=== PATIENT | female | born 1990 | race African-American/Black ===

== ENCOUNTER 2023-08-07 07:47 | Emergency (ER) | payer OTHER, SELFPAY ==
--- NOTE | ~2023-08-07 | US_ITS ---
EXAMINATION: US OB <=14 wk fetus w TV DATE: 08/07/2023 10:45 INDICATION: Vaginal bleeding during first trimester TECHNIQUE: Real-time pelvic transabdominal and transvaginal ultrasound was performed. COMPARISON: None. FINDINGS: The uterus measures 10.0 x 5.5 x 4.9 cm. No intrauterine gestational sac is identified. The re is heterogeneous endometrial thickening measuring up to 2.4 cm. The right ovary measures 3.0 x 3.2 x 3.8 cm and contains a 3.0 cm hemorrhagic cyst. The left ovary me asures 3.2 x 1.6 x 1.8 cm. There is normal vascular flow in the ovaries. There is no free fluid in th e pelvis. IMPRESSION: 1. of unknown location. Although no intrauterine gestational sac is seen, this may be due t o early gestation. If the patient is clinically stable, recommend followup with serial beta-hCG and u ltrasound. Reviewed, dictated and finalized at location L. NEERING DIRECTOR IMPRESSION: 1. of unknown location. Although no intrauterine gestational sac is s een, this may be due to early gestation. If the patient is clinically stable, r ecommend followup with serial beta-hCG and ultrasound.
[2023-08-07 07:50] VITALS: BP 172/102; PULSE 86; RESP 18; TEMP 36.7; O2SAT 100
[2023-08-07 08:24] LABS: Basophils Absolute Auto 0.1 K/mm3 (0.0-0.1); Basophils Percent Auto 0.5 % (0.2-1.2); Eosinophils Absolute Auto 0.2 K/mm3 (0-0.3); Eosinophils Percent Auto 2.4 % (0-4.4); Hematocrit 35.7 % (37.0-47.0); Hemoglobin 11.4 g/dL (12.0-15.0); Immature Granulocyte Absolute 0.04 K/mm3 (0.00-0.031); Immature Granulocyte Percent A 0.4 % (0-0.5); Lymphocytes Absolute Auto 2.21 K/mm3 (0.9-3.2); Lymphocytes Percent Auto 23.6 % (18.3-44.2); Mean Corpuscular HGB Conc 31.9 g/dl (32-36); Mean Corpuscular Hemoglobin 27.7 pg (26-34); Mean Corpuscular Volume 86.7 fl (80-100); Mean Platelet Volume 8.8 fl (7.4-10.4); Monocytes Absolute Auto 1.1 K/mm3 (0.1-0.6); Monocytes Percent Auto 12.1 % (2.6-8.5); Neutrophils Absolute Auto 5.7 K/mm3 (1.3-6.7); Platelet Count Result 425 k/mm3 (150-375); Red Blood Count 4.12 M/mm3 (4.2-5.4); Red Cell Distribution Width 14.6 % (11.5-14.5); White Blood Count 9.4 K/mm3 (4.5-10.0)
[2023-08-07 08:32] LABS: Alanine Aminotransferase 27 U/L (6-35); Albumin Level 4.4 g/dL (3.5-5.1); Alkaline Phosphatase 62 U/L (38-126); Anion Gap 6 mmol/L (8-16); Aspartate Amino Transferase 27 U/L (14-36); Bilirubin,Total 0.4 mg/dL (0.2-1.3); Blood Urea Nitrogen 10 mg/dL (7-17); Carbon Dioxide 24 mmol/L (22-30); Chloride 107 mmol/L (98-107); Estimated CRCL calculation 138 ml/min; Estimated Glomerular Filt Rate > 60; Glucose 102 mg/dL (65-110); Potassium 3.6 mmol/L (3.4-5.0); Sodium 137 mmol/L (137-145)
[2023-08-07 09:00] LABS: INR 0.9; Partial Thromboplastin Time 36.8 SECONDS (22.3-36.8)
[2023-08-07] MEDS: ACETAMINOPHEN 500 MG TABLET 1000 MG PO (09:28)
--- NOTE | 2023-08-07 09:35 | ED.GENADULT ---
HPI - General Adult General Chief complaint: Vaginal Bleeding Stated complaint: Vaginal Bleeding, 7wk Time Seen by Provider: 08/07/23 08:26 History of Present Illness HPI narrative: 33-year-old female presents emergency department for evaluation of vaginal bleeding with early . Patient states she suspects she is approximately 7 weeks , patient reports she did have some mild spotting yesterday and then today she began passing more significant clots. Related Data Allergies Allergy/AdvReac Type Severity Reaction Status Date / Time No Known Allergies Allergy Verified 08/07/23 08:06 Review of Systems Review of Systems: All systems reviewed & are unremarkable except as noted in HPI and below Exam Narrative: APPEARANCE: Well appearing, no pain, no distress, well-nourished. HEAD: normocephalic, atraumatic. EYES: PERRLA/EOMI, conjunctivae clear. NOSE: Normal no drainage NECK: Supple. No adenopathy, no masses. RESPIRATORY: Airway patent, respirations nonlabored. Clear to auscultation bilaterally, no rales, rhonchi, wheezing. CARDIOVASCULAR: Regular rate and rhythm without murmurs rubs or gallops. ABDOMINAL: Soft, nontender, nondistended, normal bowel sounds MUSCULOSKELETAL: Moves all extremities. Strength/ROM intact, No edema, No calf tenderness. NEURO: Alert. Cranial nerves II through XII intact. Grossly intact SKIN: Warm, dry. Normal Color Course Course Emergency Course: Patient was encouraged of close follow-up with her OB Gyne Vital Signs Vital signs: Vital Signs Temperature 98.1 F 08/07/23 07:50 Pulse Rate 86 08/07/23 07:50 Respiratory Rate 18 08/07/23 07:50 Blood Pressure 172/102 H 08/07/23 07:50 Pulse Oximetry 100 08/07/23 07:50 Oxygen Delivery Room Air 08/07/23 07:50 Temperature 97.8 F 08/07/23 11:28 Pulse Rate 80 08/07/23 11:28 Respiratory Rate 16 08/07/23 11:28 Blood Pressure 136/84 08/07/23 11:28 Pulse Oximetry 98 08/07/23 11:28 Oxygen Delivery Room Air 08/07/23 07:50 Medical Decision Making [facility] Narrative Medical decision making narrative: 33-year-old female presents to the emergency department for evaluation of vaginal bleeding. Patient states when she had her ultrasound has outpatient and they did see a gestational sac with in the uterus but no fetus. Ultrasound was ordered today and ultrasound showed no gestational sac. Patient is A positive and does not require RhoGAM. Patient's beta HCG was 5733.8. Patient is afebrile with no leukocytosis and a stable hemoglobin. Patient was updated on results of her ultrasound and patient does have follow-up scheduled with OB Gyne. Differential Diagnosis Differential Diagnosis: Ectopic , threatened miscarriage, vaginal bleeding Vital Signs Vital Signs: Vital Signs Temperature 98.1 F 08/07/23 07:50 Pulse Rate 86 08/07/23 07:50 Respiratory Rate 18 08/07/23 07:50 Blood Pressure 172/102 H 08/07/23 07:50 Pulse Oximetry 100 08/07/23 07:50 Oxygen Delivery Room Air 08/07/23 07:50 Temperature 97.8 F 08/07/23 11:28 Pulse Rate 80 08/07/23 11:28 Respiratory Rate 16 08/07/23 11:28 Blood Pressure 136/84 08/07/23 11:28 Pulse Oximetry 98 08/07/23 11:28 Oxygen Delivery Room Air 08/07/23 07:50 Lab Data Lab results reviewed: Yes I reviewed the patient's lab results. 08/07/23 08:13 08/07/23 08:13 Labs: Lab Results 08/07/23 Range/Units 08:13 WBC 9.4 (4.5-10.0) K/mm3 RBC 4.12 L (4.2-5.4) M/mm3 Hgb 11.4 L (12.0-15.0) g/dL Hct 35.7 L (37.0-47.0) % MCV 86.7 (80-100) fl MCH 27.7 (26-34) pg MCHC 31.9 L (32-36) g/dl RDW 14.6 H (11.5-14.5) % Plt Count 425 H (150-375) k/mm3 MPV 8.8 (7.4-10.4) fl Immature Gran % (Auto) 0.4 (0-0.5) % Neut % (Auto) 61.0 (45.5-73.1) % Lymph % (Auto) 23.6 (18.3-44.2) % [place] % (Auto) 12.1 H (2.6-8.5) % Eos % (Auto) 2.4 (0-4.4) % Baso % (A
[2023-08-07 10:22] VITALS: BP 135/82; PULSE 72; RESP 17; O2SAT 99
[2023-08-07 11:28] VITALS: BP 136/84; PULSE 80; RESP 16; TEMP 36.6; O2SAT 98
== END 2023-08-07 11:30 | disposition home or self-care (01) ==
PROVIDERS: Emergency Provider Emergency Medicine
DX: O20.0 Threatened abortion (principal); Z3A.01 Less than 8 weeks gestation of pregnancy
CPT/HCPCS: 36415; 76801; 76817; 80053; 84702; 85025; 85461; 85610; 85730; 86850; 86900; 86901; 99284; A9270

== ENCOUNTER 2024-07-25 19:50 | Observation (INO) | payer OTHER, SELFPAY ==
[2024-07-25] VITALS (14 sets, daily range): BP systolic 123–157; BP diastolic 70–93; PULSE 61–100; TEMP 36.8; O2SAT 97–100
--- OUTSIDE RECORDS SUMMARY | 2024-07-25 20:00 | XMS_ITS | Clinical Summary ---
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 Expectant management: [] Mode of delivery: [] For C/S bottle of CHG 4% and hand out provided @ 36wks Teaching: [] 1st visit [] 28-30 week [] 36 week Bilateral low back pain without sciatica 023 Overview (02/06/2024): Noticed more the last few months. Pain in the middle of her lower back bilaterally. Feels like it shoots across her back from one side to the other, does not shoot down legs. She knows that her increase in weight could be contributing. No tenderness at SI joints. Has not tried anything for it yet. Gave Care of the Back Book today and recommended gently stretching exercises. Okay to use heat and Tylenol, ibuprofen as long as limited use and not . Consider PT if not improving over the next month. Elevated BP without diagnosis of hypertension Overview (02/06/2024): 06/27/2023: Blood pressure is still in the 130s/70s even on recheck today. Denies any headaches, vision changes, chest pain, shortness for breath, palpitations, edema. Discussed that we would recommend starting a blood pressure medication as she has had more than 2 blood pressures at separate appointments which have been elevated in clinic. She states she has had difficulty picking up her blood pressure machine at [facility], so sent a new blood pressure machine in today. Discussed that home blood pressures tend to be the most accurate as some people can be anxious when in the clinic setting, and are more relaxed at home. She discusses that she does feel less stressed and more calm after finishing school and moving. However, she has not been able to work on diet and weight loss as much she has wanted. She would like the opportunity to work on some of these things 1st, then return and if blood pressures are still consistently in the 130s/80s would be willing to start medication. They are currently trying to conceive so would need to start medication that is safe for . Return in 4 weeks for blood pressure check. 05/29/2023 : Blood pressure is elevated today in clinic but she recognizes she is anxious for this visit with the PAP. She was not able to pick up worker the BP cuff previously but is now done with school so will plan to pick it up this week. They are still in the process of moving to [facility] the middle of June but states she will likely continue care at [facility]. She will bring repeat blood pressures to appointment in about 3 weeks to evaluate. Will also work on diet and weight loss. If consistently above 130s/80s will start BP medication. Blood pressure is elevated today in clinic and remained slightly elevated even on recheck. Discussed with patient that she is had multiple stressors in the last 2 months and she recognizes that these can raise her blood pressure. Discussed that NSAIDs like ibuprofen can also raise blood pressure. Blood pressure monitor for home prescribed to [employer], and instructions given to take blood pressure at the same time of day for the next few weeks. Patient will bring these into next appointment and if consistently 130/80 or higher we will discuss starting blood pressure medication. Morbid obesity due to excess calories 10/13/2022 Overview (02/06/2024): Wt Readings from Last 6 Encounters: 06/26/23 116.8 kg (257 lb 6.4 oz) 05/29/23 117.2 kg (258 lb 6.4 oz) 05/01/23 116 kg (255 lb 12.8 oz) 01/18/23 109.8 kg (242 lb) 10/13/22 111.1 kg (245 lb) 09/18/22 109.8 kg (242 lb) Given education on diet and exercise. Discussed including good proteins and fats with meals to help keep her full longer. Reviewed basics of Mediterranean diet. Moderate episode of recurrent major depressive d isorder 08/21/2022 Overview (02/06/2024): patient does not feel sad. However she does have feelings of lack of interest. She reports feeling tired and fatigued, reports psychomotor agitation, has sleep disturbances and appetite disturbances. She denies any suicidal, homicidal ideations. Given lack of interest, anhedonia, diagnosis of depression is apparent. Treatment with SSRI will help with anxiety and depression management. Marijuana abuse 05/30/2022 Lumbar degenerative disc disease 03/14/2021 Generalized anxiety disorder 02/22/2021 Overview (02/06/2024): Update. 01/18/2023 : She reports that after using Lexapro 10 mg, her anxiety has become worse. She does not want to use this medication. We will switch her over to buspirone and see how she responds Update. August 21. Patient reports 10% improvement after starting 5 mg of Lexapro. No side effects reported. Keeping this in mind, will advise her to increase the dose to 10 mg daily. Additionally, referral to psychiatry has been placed. Has been having difficulty controlling her anger. Anxiety screening as below. Uses marijuana to self medicate. Recently got a pet dog. That seems to help as a emotional support animal. Given the positive screening below, will initiate treatment with Lexapro and see how she responds. 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 Wanted tested herself but never has had breakout. Discussed positive result. Will not treat at this point. Comments Yes Immunizations Name Administration Dates Next Due DTaP 11/04/1996,10/01/1992 Hep B, Adolescent or Pediatric 03/25/1997,1996,04/02/1995 Hib (PRP-T) 07/23/1992,1991,1991 ,1991 MMR 11/04/1996,07/23/1992 Meningococcal MCV4P (Menactra) 01/11/2005 OPV 11/04/1996, 3,1991,1991,0 1991 TD Preservative Free 01/11/2005 Tdap 04/25/2022 Social History Tobacco Use Types Packs/Day Years Used Date Smoking Tobacco: Never Assessed Personal Safety Answer Date Recorded Have you ever been in or are you currently in a harmful physical or emotional relationship or is someone making you feel afraid or unsafe? Denies 01/08/2024 Comments Yes Sex and Gender Information Value Date Recorded Sex Assigned at Not on file Legal Sex Female 3:51 PM CDT Gender Identity Not on file Sexual Orientation Not on file Obstetrics History Para Term AB IAB SAB Ectopic Multiple Livin g Live Births 3 2 1 1 Date Outcome GA Total Labor Labor/2nd/3rd Weight Sex Type Anes PTL [place] A1 A5 Name Clin 11/2016 IAB 08/2023 SAB Current Summary Episode Dates Number of Fetuses Estimated Date of Delivery 02/06/2024 - Present (07/25/2024) Unknown Dating Summary Based On BABAK GA Diff Last Menstrual Period on 12/22/2023 09/27/2024 Last Filed Vital Signs Vital Sign Reading Time Taken Comments Blood Pressure 150/110 01/08/2024 1:30 PM CDT Pulse 76 01/08/2024 1:30 PM CDT Temperature 37.3 C (99.1 F) 01/08/2024 12:19 PM CDT Respiratory Rate 20 01/08/2024 1:30 PM CDT Oxygen Saturation 99% 01/08/2024 1:30 PM CDT Inhaled Oxygen Concentration - - Weight 111.8 kg (246 lb 7.6 oz) 024 12:19 PM CDT Height 172.7 cm (5' 8 ) 12/10/2023 12:5 9 PM CDT Body Mass Index 37.48 12/10/2023 12:59 PM CDT Plan of Treatment Health Maintenance Due Date Last Done Comments Cervical Cancer Screening 1991 Depression Screening 1991 Hepatitis C Screening 1991 Varicella Vaccines (1 of 2 - 13+ 2-dose series) 2004 Regular Well Visit/Exam 18-64 2009 Influenza Vaccine (#1) 2024 DTaP/Tdap/Td Vaccine (4 - Td or Tdap) 04/25/2032 04/25/2022, 01/11/2005, 11/04/1996, Additional history exists Hepatitis B Screening Completed 03/25/1997 , 11/04/1996, 04/02/1995 HPV Vaccines Aged Out No longer eligi ble based on patient's age to complete this topic Pneumococcal vaccine <65 Aged Out No longer eligible based on patient's age to complete [place] [id number] [facility] [address] [facility] Care Teams College Recruiter Relationship Specialty Start Date End Date Unknown, Notinfile PCP - General 11/08/23
--- OUTSIDE RECORDS SUMMARY | 2024-07-25 20:00 | XMS_ITS | Referral Summary ---
Author Organization [facility] Address [address] [place] [address] Care Team Providers Care Muffler Mechanic Name Role Phone Unavailable Primary Care Provider Unavailabl e Source Comments [facility],non-owned Affiliates and Associated Physician Practices is amultiple site organization consisting of ambulatory clinics and hospital sitesin [place], [place], [place] and [place]. This disclosure is being madepursuant to the Care Everywhere program and may not contain all information available regarding this patient. Last updated 18.[facility] [employer] Encounters Date Type Department Care Team Description 04/25/2024 11:24 PM TICKET DISPATCHER - 04/26/2024 5:01 AM TICKET DISPATCHER Emergency [facility] EMERGENCY DEPARTMENT [address] [place] [id number] Fall, initial encounter Discharge Disposition: Left Against Medical Advice/Discontinued Care 04/25/2024 Travel from Last 3 Months Allergies No known active allergies Social History Tobacco Use Types Packs/Day Years Used Date Smoking Tobacco: Never Assessed Sex and Gender Information Value Date Recorded Sex Assigned at Not on file Gender Identity Not on file Sexual Orientation Not on file Last Filed Vital Signs Vital Sign Reading Time Taken Comments Blood Pressure 132/101 04/25/2024 11:26 PM TICKET DISPATCHER Pulse 106 04/25/2024 11:26 PM TICKET DISPATCHER Temperature 36.7 C (98 F) 04/25/2024 11:26 PM TICKET DISPATCHER Respiratory Rate 22 04/25/2024 11:26 PM TICKET DISPATCHER Oxygen Saturation 97% 04/25/2024 11:26 PM TICKET DISPATCHER Inhaled Oxygen Concentration - - Weight 115.7 kg (255 lb) 04/25/2024 11:26 PM TICKET DISPATCHER Height 172.7 cm (5' 8 ) 04/25/2024 11:26 PM TICKET DISPATCHER Body Mass Index 38.77 04/25/2024 11:26 PM TICKET DISPATCHER Plan of Treatment Not on file Procedures Procedure Name Priority Date/Time Associated Diagnosis Comments CT ORBITS WO CONTRAST STAT 04/26/2024 1:54 AM TICKET DISPATCHER Fall, initial encounter CT HEAD WO CONTRAST STAT 04/26/2024 1 :54 AM TICKET DISPATCHER Fall, initial encounter COMPREHENSIVE METABOLIC PANEL STAT 04/26/2024 12:13 AM TICKET DISPATCHER CBC W AUTO DIFFERENTIAL STAT 04/26/2024 12:13 AM TICKET DISPATCHER HCG URINE QUALITATIVE STAT 04/26/2024 12:13 AM TICKET DISPATCHER from Last 3 Months Results * CT Orbits Wo Contrast (04/26/2024 1:54 AM TICKET DISPATCHER) Anatomical Region Laterality Modality Head Computed Tomogra phy 04/26/2024 2:06 AM TICKET DISPATCHER Impressions 04/26/2024 7:24 AM TICKET DISPATCHER IMPRESSION: 1.Proptotic globes bilaterally. No orbital fracture or retrobulbar hematoma is identified. > Dictated by Paulino Daniels DO (resident services supervisor). IErica MD have personally reviewed and interpreted this examination/study. > Interpreting Provider: Erica George MD on 04/26/2024 7:24 AM Narrative 04/26/2024 7:24 AM TICKET DISPATCHER EXAMINATION: CT ORBITS WO CONTRAST DATE/TIME OF EXAM: 04/26/2024 1:55 AM, LOCATION [facility] HISTORY: W19.XXXA: Fall, initial encounter ?orbit fracture, vision change (20/50 in left eye with laceration, fall) COMPARISON: No prior study is available for comparison. FINDINGS: Mildly proptotic globes bilaterally. No orbital fracture is identified. No retrobulbar hematoma. No radiodense foreign bodies are identified in the orbits. There is mild paranasal sinus disease. There is a mucous retention cyst in the left maxillary sinus. The nasal septum is mildly limited to the right. No acute fracture of the visualized facial bones. The middle ear cavities and mastoid air cells are clear. No soft tissue abnormality is identified. Procedure Note Erica George MD - 04/26/2024 EXAMINATION: CT ORBITS WO CONTRAST DATE/TIME OF EXAM: 04/26/2024 1:55 AM, LOCATION [facility] HISTORY: W19.XXXA: Fall, initial encounter ?orbit fracture, visionchange (20/50 in left eye with laceration, fall) COMPARISON: No prior study is available for comparison. FINDINGS: Mildly proptotic globes bilaterally. No orbital fracture is identified.No retrobulbar hematoma. No radiodense foreign bodies are identified in the orbits. There is mild paranasal sinus disease. There is a mucousretention cyst in the left maxillary sinus. The nasal septum is mildly limited tothe right. No acute fracture of the visualized facial bones. The middle ear cavities and mastoid air cells are clear. No soft tissue abnormality is identified. IMPRESSION: 1.Proptotic globes bilaterally. No orbital fracture or retrobulbarhematoma is identified. > Dictated by Paulino Daniels DO (resident services supervisor). Erica Caro MD have personally reviewed and interpretedthis examination/study. > Interpreting Provider: Erica George MD on 04/26/2024 7:24 AM Shakira Sawyer MD CT ORDERABLES * CT Head Wo Contrast (04/26/2024 1:54 AM TICKET DISPATCHER) Anatomical Region Laterality Modality Head Computed Tomogra phy 04/26/2024 1:57 AM TICKET DISPATCHER Impressions 04/26/2024 7:22 AM TICKET DISPATCHER IMPRESSION: 1.No acute intracranial hemorrhage, midline shift, or significant mass effect. > Dictated by Paulino Daniels DO (System Engineer), 04/26/2024 2:05 AM. Erica Caro MD have personally reviewed and interpreted this examination/study. > Interpreting Provider: Erica George MD on 04/26/2024 7:22 AM Narrative 04/26/2024 7:22 AM TICKET DISPATCHER PROCEDURE: CT HEAD WO CONTRAST, DATE/TIME OF EXAM: 04/26/2024 1:55 AM, LOCATION [facility] INDICATION: W19.XXXA: Fall, initial encounter EXAMINATION: Computed tomography (CT) of the head without contrast ADDITIONAL CLINICAL INFORMATION: Ordering Provider Reason For Exam: ?ICH TECHNIQUE: CT of the head was performed without contrast according to standard protocol. CT dose reduction technique was used, including Automated Exposure Control. COMPARISON: No prior study is available for comparison at the time of this dictation. FINDINGS: No acute intra- or extra-axial fluid collections are identified. Subjective minimal prominence of the ventricles. The ventricles are otherwise normal in shape and morphology. The basilar cisterns are patent. No mass effect or midline shift is seen. The joseph-white matter differentiation is normal. No acute calvarial fracture is identified. The orbits appear normal. The paranasal sinuses are clear. The mastoid air cells are clear. No soft tissue abnormality is identified. Brain injury guidelines: Skull fracture: No Subdural hematoma: No subdural hematoma. Epidural hematoma: No epidural hematoma. Intraparenchymal hemorrhage: No intraparenchymal hemorrhage. Subarachnoid hemorrhage: No subarachnoid hemorrhage. Intraventricular hemorrhage: No. Midline shift: No. Procedure Note Erica George MD - 04/26/2024 PROCEDURE: CT HEAD WO CONTRAST, DATE/TIME OF EXAM: 04/26/2024 1:55 AM, LOCATION [facility] INDICATION: W19.XXXA: Fall, initial encounter EXAMINATION: Computed tomography (CT) of the head without contrast ADDITIONAL CLINICAL INFORMATION: Ordering Provider Reason For Exam: ?ICH TECHNIQUE: CT of the head was performed without contrast according to standard protocol. CT dose reduction technique was used, including Automated Exposure Control. COMPARISON: No prior study is available for comparison at the time ofthis dictation. FINDINGS: No acute intra- or extra-axial fluid collections are identified.Subjective minimal prominence of the ventricles. The ventricles are otherwisenormal in shape and morphology. The basilar cisterns are patent. No mass effector midline shift is seen. The joseph-white matter differentiation is normal.No acute calvarial fracture is identified. The orbits appear normal. The paranasal sinuses are clear. The mastoid air cells are clear. No soft tissue abnormality is identified. Brain injury guidelines: Skull fracture: No Subdural hematoma: No subdural hematoma. Epidural hematoma: No epidural hematoma. Intraparenchymal hemorrhage: No intraparenchymal hemorrhage. Subarachnoid hemorrhage: No subarachnoid hemorrhage. Intraventricular hemorrhage: No. Midline shift: No. IMPRESSION: 1.No acute intracranial hemorrhage, midline shift, or significant mass effect. > Dictated by Paulino Daniels DO (System Engineer), 04/26/2024 2:05AM. I, Erica George MD have personally reviewed and interpretedthis examination/study. > Interpreting Provider: Erica George MD on 04/26/2024 7:22 AM Shakira Sawyer MD CT ORDERABLES * (ABNORMAL) HCG URINE QUALITATIVE (04/26/2024 12:13 AM TICKET DISPATCHER) [facility] Test Urine Positive(A ) Negative 04/26/2024 12:29 AM [facility] Urine URINE / Unknown Collection / Unknown 04/26/2024 12:13 AM TICKET DISPATCHER 04/26/2024 12:19 AM TICKET DISPATCHER Gilbert Tang MD LAB - URINALYSIS ORD ERABLES [facility] [address] [place] [id number] [phone] * (ABNORMAL) CBC W AUTO DIFFERENTIAL (04/26/2024 12:13 AM TICKET DISPATCHER) [facility] WBC 11.8(H) 4.0 - 10.7 x10E9/L 04/26/2024 12:29 AM [facility] RBC Count 3.86(L) 3.90 - 5.20 x10E12/L 04/26/2024 12:29 AM [facility] Hemoglobin 10.8(L) 11.9 - 15.8 g/dL 04/26/2024 12:29 AM [facility] Hematocrit 32.0(L) 34.8 - 46.1 % 04/26/2024 12:29 AM [facility] MCV 82.9 80.0 - 98.0 fL 04/26/2024 12:29 AM [facility] MCH 28.0 26.7 - 33.6 pg 04/26/2024 12:29 AM [facility] MCHC 33.8 31.7 - 36.3 g/dL 04/26/2024 12:29 AM [facility] RDW-CV 13.1 11.3 - 14.8 % 04/26/2024 12:29 AM [facility] Platelet Count 406 150 - 420 x10E9/L 04/26/2024 12:29 AM [facility] MPV 9.0 7.8 - 11.4 fL 04/26/2024 12:29 AM [facility] Neutrophil % 72.1 41.0 - 74.0 % 04/26/2024 12:29 AM [facility] Lymphocyte % 18.0 17.0 - 47.0 % 04/26/2024 12:29 AM [facility] Monocyte % 8.1 3.0 - 11.0 % 04/26/2024 12:29 AM [facility] Eosinophil % 1.1 0.0 - 7.0 % 04/26/2024 12:29 AM [facility] Basophil % 0.3 0.0 - 1.6 % 04/26/2024 12:29 AM [facility] Immature Granulocytes % 0.4 0.0 - 1.0 % 04/26/2024 12:29 AM [facility] Neutrophil Absolute 8.52(H) 1.60 - 7.50 x10E9/L 04/26/2024 12:29 AM [facility] Lymphocyte Absolute 2.12 1.00 - 4.40 x10E9/L 04/26/2024 12:29 AM [facility] Monocyte Absolute 0.95 0.15 - 1.00 x10E9/L 04/26/2024 12:29 AM [facility] Eosinophil Absolute 0.13 0.00 - 0.60 x10E9/L 04/26/2024 12:29 AM [facility] Basophil Absolute 0.03 0.00 - 0.13 x10E9/L 04/26/2024 12:29 AM [facility] Blood BLOOD SPECIMEN / Unknown Venipuncture / Unknown 04/26/2024 12:13 AM [facility] 04/26/2024 12:21 AM TICKET DISPATCHER Gilbert Tang MD LAB - HEMATOLOGY ORD ERABLES [facility] [address] [place] [address], [facility] [phone] * (ABNORMAL) COMPREHENSIVE METABOLIC PANEL (04/26/2024 12:13 AM [facility]) BUN 6(L) 7 - 26 mg/dL 04/26/2024 12:48 AM [facility] Creatinine 0.59 0.56 - 0.96 mg/dL 04/26/2024 12:48 AM [facility] Sodium 138 136 - 145 mmol/L 04/26/2024 12:48 AM [facility] Potassium 3.6 3.5 - 4.5 mmol/L 04/26/2024 12:48 AM [facility] Chloride 107 98 - 107 mmol/L 04/26/2024 12:48 AM [facility] CO2 23 22 - 29 mmol/L 04/26/2024 12:48 AM [facility] Glucose 89 70 - 99 mg/dL 04/26/2024 12:48 AM [facility] Calcium 9.3 8.4 - 10.2 mg/dL 04/26/2024 12:48 AM [facility] Protein Total 7.5 6.0 - 8.3 g/dL 04/26/2024 12:48 AM [facility] Albumin 3.4 3.4 - 5.0 g/dL 04/26/2024 12:48 AM [facility] Bilirubin Total 0.2 0.2 - 1.2 mg/dL 04/26/2024 12:48 AM [facility] Alkaline Phosphatase 61 40 - 150 U/L 04/26/2024 12:48 AM [facility] ALT 21 5 - 55 U/L 04/26/2024 12:48 AM [facility] AST 18 5 - 34 U/L 04/26/2024 12:48 AM [facility] Anion Gap 8 6 - 16 04/26/2024 12:48 AM [facility] BUN/Creatinine Ratio 10 7 - 23 04/26/2024 12:48 AM [facility] Osmolality Calculated 283 275 - 295 mOsm/kg 04/26/2024 12:48 AM [facility] Albumin/Globulin Ratio 0.8(L) 1.1 - 2.3 04/26/2024 12:48 AM [facility] eGFR by CKD-EPI >90 >=90 mL/min/1.7 3 m2 04/26/2024 12:48 AM [facility] Blood BLOOD SPECIMEN / Unknown Venipuncture / Unknown 04/26/2024 12:13 AM TICKET DISPATCHER 04/26/2024 12:21 AM [facility] Gilbert Tang MD LAB - CHEMISTRY ISHAAN DANIELS [facility] [address] [place] [address], [facility] [phone] from Last [address] [place] [address] Fadumo Baxter Personal/Family Self 1990
--- OUTSIDE RECORDS SUMMARY | 2024-07-25 20:00 | XMS_ITS | Patient Health Summary ---
Author Organization [facility] Address [address] [place] [address] Care Team Providers Care Edging Catcher Name Role Phone Unavailable Primary Care Provider Unavailabl e Note from [facility],non-owned Affiliates and Associated Physician Practices is amultiple site organization consisting of ambulatory clinics and hospital sitesin [place], [place], [place] and [place]. This disclosure is being madepursuant to the Care Everywhere program and may not contain all information available regarding this patient. Last updated 18.[facility] Allergies No known active allergies Social History Tobacco Use Types Packs/Day Years Used Date Smoking Tobacco: Never Assessed Sex and Gender Information Value Date Recorded Sex Assigned at Not on file Gender Identity Not on file Sexual Orientation Not on file Last Filed Vital Signs Vital Sign Reading Time Taken Comments Blood Pressure 132/101 04/25/2024 11:26 PM BASIN FINISH OPERATOR TIG WELDER Pulse 106 04/25/2024 11:26 PM BASIN FINISH OPERATOR TIG WELDER Temperature 36.7 C (98 F) 04/25/2024 11:26 PM BASIN FINISH OPERATOR TIG WELDER Respiratory Rate 22 04/25/2024 11:26 PM BASIN FINISH OPERATOR TIG WELDER Oxygen Saturation 97% 04/25/2024 11:26 PM BASIN FINISH OPERATOR TIG WELDER Inhaled Oxygen Concentration - - Weight 115.7 kg (255 lb) 04/25/2024 11:26 PM BASIN FINISH OPERATOR TIG WELDER Height 172.7 cm (5' 8 ) 04/25/2024 11:26 PM BASIN FINISH OPERATOR TIG WELDER Body Mass Index 38.77 04/25/2024 11:26 PM BASIN FINISH OPERATOR TIG WELDER Procedures * CT ORBITS WO CONTRAST(Performed 04/26/2024) Performed for Fall, initial encounter * CT HEAD WO CONTRAST(Performed 04/26/2024) Performed for Fall, initial encounter * COMPREHENSIVE METABOLIC PANEL(Performed 04/26/2024) * CBC W AUTO DIFFERENTIAL(Performed 04/26/2024) * HCG URINE QUALITATIVE(Performed 04/26/2024) Results * CT Orbits Wo Contrast (04/26/2024 1:54 AM BASIN FINISH OPERATOR TIG WELDER) Anatomical Region Laterality Modality Head Computed Tomogra phy 04/26/2024 2:06 AM BASIN FINISH OPERATOR TIG WELDER Impressions 04/26/2024 7:24 AM BASIN FINISH OPERATOR TIG WELDER IMPRESSION: 1.Proptotic globes bilaterally. No orbital fracture or retrobulbar hematoma is identified. > Dictated by Paulino Daniels DO (co founder and president). IErica MD have personally reviewed and interpreted this examination/study. > Interpreting Provider: Erica George MD on 04/26/2024 7:24 AM Narrative 04/26/2024 7:24 AM BASIN FINISH OPERATOR TIG WELDER EXAMINATION: CT ORBITS WO CONTRAST DATE/TIME OF EXAM: 04/26/2024 1:55 AM, LOCATION [facility] HISTORY: W19.XXXA: Fall, initial encounter ?orbit [...] DATE/TIME OF EXAM: 04/26/2024 1:55 AM, LOCATION [facility] HISTORY: W19.XXXA: Fall, initial encounter ?orbit [...] identified. > Dictated by Paulino Daniels DO (co founder and president). Erica Caro MD have personally reviewed and interpretedthis examination/study. > Interpreting Provider: Erica George MD on 04/26/2024 7:24 AM Shakira Sawyer MD CT ORDERABLES * CT Head Wo Contrast (04/26/2024 1:54 AM BASIN FINISH OPERATOR TIG WELDER) Anatomical Region Laterality Modality Head Computed Tomogra phy 04/26/2024 1:57 AM BASIN FINISH OPERATOR TIG WELDER Impressions 04/26/2024 7:22 AM BASIN FINISH OPERATOR TIG WELDER IMPRESSION: 1.No acute intracranial hemorrhage, midline shift, or significant mass effect. > Dictated by Paulino Daniles DO (Environmental Field Office Manager), 04/26/2024 2:05 AM. Erica Caro MD have personally reviewed and interpreted this examination/study. > Interpreting Provider: Erica George MD on 04/26/2024 7:22 AM Narrative 04/26/2024 7:22 AM BASIN FINISH OPERATOR TIG WELDER PROCEDURE: CT HEAD WO CONTRAST, DATE/TIME OF EXAM: 04/26/2024 1:55 AM, LOCATION [facility] INDICATION: W19.XXXA: Fall, initial encounter EXAMINATION: [...] DATE/TIME OF EXAM: 04/26/2024 1:55 AM, LOCATION [facility] INDICATION: W19.XXXA: Fall, initial encounter EXAMINATION: [...] effect. > Dictated by Paulino Daniels DO (Environmental Field Office Manager), 04/26/2024 2:05AM. Erica Caro MD have personally reviewed and interpretedthis examination/study. > Interpreting Provider: Erica George MD on 04/26/2024 7:22 AM Shakira Sawyer MD CT ORDERABLES * (ABNORMAL) HCG URINE QUALITATIVE (04/26/2024 12:13 AM BASIN FINISH OPERATOR TIG WELDER) Test Urine Positive(A ) Negative 04/26/2024 12:29 AM [facility] Urine URINE / Unknown Collection / Unknown 04/26/2024 12:13 AM BASIN FINISH OPERATOR TIG WELDER 04/26/2024 12:19 AM BASIN FINISH OPERATOR TIG WELDER Gilbert Tang MD LAB - URINALYSIS ORD ERABLES [facility] [address] [place] [address], [facility] [phone] * (ABNORMAL) CBC W AUTO DIFFERENTIAL (04/26/2024 12:[address] [facility]) Pathologist [facility] WBC 11.8(H) 4.0 - 10.7 x10E9/L 04/26/2024 12:29 AM [facility] RBC Count 3.86(L) 3.90 - 5.20 x10E12/L 04/26/2024 12:29 AM [facility] Hemoglobin 10.8(L) 11.9 - 15.8 g/dL 04/26/2024 12:29 AM [facility] Hematocrit 32.0(L) 34.8 - 46.1 % 04/26/2024 12:29 AM [facility] MCV 82.9 80.0 - 98.0 fL 04/26/2024 12:29 AM [facility] MCH 28.0 26.7 - 33.6 pg 04/26/2024 12:29 AM [facility] MCHC 33.8 31.7 - 36.3 g/dL 04/26/2024 12:29 AM [facility] RDW-CV 13.1 11.3 - 14.8 % 04/26/2024 12:29 AM [facility] Platelet Count 406 150 - 420 x10E9/L 04/26/2024 12:29 AM [facility] MPV 9.0 7.8 - 11.4 fL 04/26/2024 12:29 AM [facility] Neutrophil % 72.1 41.0 - 74.0 % 04/26/2024 12:29 AM [facility] Lymphocyte % 18.0 17.0 - 47.0 % 04/26/2024 12:29 AM [facility] Monocyte % 8.1 3.0 - 11.0 % 04/26/2024 12:29 AM [facility] Eosinophil % 1.1 0.0 - 7.0 % 04/26/2024 12:29 AM [facility] Basophil % 0.3 0.0 - 1.6 % 04/26/2024 12:29 AM [facility] Immature Granulocytes % 0.4 0.0 - 1.0 % 04/26/2024 12:29 AM [facility] Neutrophil Absolute 8.52(H) 1.60 - 7.50 x10E9/L 04/26/2024 12:29 AM [facility] Lymphocyte Absolute 2.12 1.00 - 4.40 x10E9/L 04/26/2024 12:29 AM [facility] Monocyte Absolute 0.95 0.15 - 1.00 x10E9/L 04/26/2024 12:29 AM [facility] Eosinophil Absolute 0.13 0.00 - 0.60 x10E9/L 04/26/2024 12:29 AM [facility] Basophil Absolute 0.03 0.00 - 0.13 x10E9/L 04/26/2024 12:29 AM [facility] Blood BLOOD SPECIMEN / Unknown Venipuncture / Unknown 04/26/2024 12:[address] [facility] 04/26/2024 12:[address] [facility] Gilbert Tang MD LAB - HEMATOLOGY ORD ERABLES [facility] [address] [place] [phone], [facility] [phone] * (ABNORMAL) COMPREHENSIVE METABOLIC PANEL (04/26/2024 12:[address] [facility]) BUN 6(L) 7 - 26 mg/dL 04/26/2024 12:48 AM [facility] Creatinine 0.59 0.56 - 0.96 mg/dL 04/26/2024 12:48 AM [facility] Sodium 138 136 - 145 mmol/L 04/26/2024 12:48 AM [facility] Potassium 3.6 3.5 - 4.5 mmol/L 04/26/2024 12:48 AM [facility] Chloride 107 98 - 107 mmol/L 04/26/2024 12:48 AM [facility] CO2 23 22 - 29 mmol/L 04/26/2024 12:48 AM [facility] Glucose 89 70 - 99 mg/dL 04/26/2024 12:48 AM [facility] Calcium 9.3 8.4 - 10.2 mg/dL 04/26/2024 12:48 AM [facility] Protein Total 7.5 6.0 - 8.3 g/dL 04/26/2024 12:48 AM [facility] Albumin 3.4 3.4 - 5.0 g/dL 04/26/2024 12:48 AM [facility] Bilirubin Total 0.2 0.2 - 1.2 mg/dL 04/26/2024 12:48 AM [facility] Alkaline Phosphatase 61 40 - 150 U/L 04/26/2024 12:48 AM [facility] ALT 21 5 - 55 U/L 04/26/2024 12:48 AM [facility] AST 18 5 - 34 U/L 04/26/2024 12:48 AM [facility] Anion Gap 8 6 - 16 04/26/2024 12:48 AM [facility] BUN/Creatinine Ratio 10 7 - 23 04/26/2024 12:48 AM [facility] Osmolality Calculated 283 275 - 295 mOsm/kg 04/26/2024 12:48 AM [facility] Albumin/Globulin Ratio 0.8(L) 1.1 - 2.3 04/26/2024 12:48 AM [facility] eGFR by CKD-EPI >90 >=90 mL/min/1.7 3 m2 04/26/2024 12:48 AM [facility] Blood BLOOD SPECIMEN / Unknown Venipuncture / Unknown 04/26/2024 12:13 AM BASIN FINISH OPERATOR TIG WELDER 04/26/2024 12:21 AM BASIN FINISH OPERATOR TIG WELDER Gilbert Tang MD LAB - CHEMISTRY ISHAAN DANIELS [facility] Organization Address City/State/ZIP Co de Phone Number [address] [address], [facility] [phone]
--- OUTSIDE RECORDS SUMMARY | 2024-07-25 20:00 | XMS_ITS | Clinical Summary ---
Author Organization [facility] Performable Address [address] [place] [place] [address] Care Team Providers Care Fresh Work Wrapper Layer Name Role Phone Unavailable Primary Care Provider Unavailabl e Source Comments [facility] Performable,non-owned Affiliates and Associated Physician Practices is amultiple site organization consisting of ambulatory clinics and hospital sitesin [place], [place], [place] and [place]. This disclosure is being madepursuant to the Care Everywhere program and may not contain all information available regarding this patient. Last updated 18.[employer] Stats Allergies No known active allergies Encounters Date Type Department Care Team Description 04/25/2024 11:24 PM FLOOR SURFACER - 04/26/2024 5:01 AM FLOOR SURFACER Emergency [facility] [address] [place] [id number] Fall, initial encounter Discharge Disposition: Left Against Medical Advice/Discontinued Care 04/25/2024 Travel from Last 3 Months Social History Tobacco Use Types Packs/Day Years Used Date Smoking Tobacco: Never Assessed Sex and Gender Information Value Date Recorded Sex Assigned at Not on file Gender Identity Not on file Sexual Orientation Not on file Last Filed Vital Signs Vital Sign Reading Time Taken Comments Blood Pressure 132/101 04/25/2024 11:26 PM FLOOR SURFACER Pulse 106 04/25/2024 11:26 PM FLOOR SURFACER Temperature 36.7 C (98 F) 04/25/2024 11:26 PM FLOOR SURFACER Respiratory Rate 22 04/25/2024 11:26 PM FLOOR SURFACER Oxygen Saturation 97% 04/25/2024 11:26 PM FLOOR SURFACER Inhaled Oxygen Concentration - - Weight 115.7 kg (255 lb) 04/25/2024 11:26 PM FLOOR SURFACER Height 172.7 cm (5' 8 ) 04/25/2024 11:26 PM FLOOR SURFACER Body Mass Index 38.77 04/25/2024 11:26 PM FLOOR SURFACER Plan of Treatment Health Maintenance Due Date Last Done Comments PAP SMEAR 1990 HIV SCREENING 2006 HEPATITIS C SCREENING 03/25/2009 DTAP/TDAP/TD VACCINES (1 - Tdap) 2010 HEPATITIS B VACCINE (1 of 3 - 19+ 3-dose series) 2010 COVID-19 VACCINE (1 - 2023-2 5 season) 2024 INFLUENZA VACCINE (#1) 2024 DEPRESSION SCREENING 06/11/2024 ZOSTER VACCINE (1 of 2) 2041 HIB VACCINE Aged Out No longer eligi ble based on patient's age to complete this topic HPV VACCINE Aged Out No longer eligi ble based on patient's age to complete this topic MENINGOCOCCAL (Group B) VACCINE Aged Out No longer eligible based on patient's age to complete this topic MENINGOCOCCAL VACCINE Aged Out No shawnee selma eligible based on patient's age to complete this topic PNEUMOCOCCAL VACCINE Aged Out No long er eligible based on patient's age to complete this topic Procedures Procedure Name Priority Date/Time Associated Diagnosis Comments CT ORBITS WO CONTRAST STAT 04/26/2024 1:54 AM FLOOR SURFACER Fall, initial encounter CT HEAD WO CONTRAST STAT 04/26/2024 1 :54 AM FLOOR SURFACER Fall, initial encounter COMPREHENSIVE METABOLIC PANEL STAT 04/26/2024 12:13 AM FLOOR SURFACER CBC W AUTO DIFFERENTIAL STAT 04/26/2024 12:13 AM FLOOR SURFACER HCG URINE QUALITATIVE STAT 04/26/2024 12:13 AM FLOOR SURFACER from Last 3 Months Results * CT Orbits Wo Contrast (04/26/2024 1:54 AM FLOOR SURFACER) Anatomical Region Laterality Modality Head Computed Tomogra phy 04/26/2024 2:06 AM FLOOR SURFACER Impressions 04/26/2024 7:24 AM FLOOR SURFACER IMPRESSION: 1.Proptotic globes bilaterally. No orbital fracture or retrobulbar hematoma is identified. > Dictated by Paulino Daniels, DO (vice president client services). Erica Caro MD have personally reviewed and interpreted this examination/study. > Interpreting Provider: Erica George MD on 04/26/2024 7:24 AM Narrative 04/26/2024 7:24 AM FLOOR SURFACER EXAMINATION: CT ORBITS WO CONTRAST DATE/TIME OF EXAM: 04/26/2024 1:55 AM, LOCATION [facility] HISTORY: W19.XXXA: Fall, initial encounter ?orbit fracture, [...] DATE/TIME OF EXAM: 04/26/2024 1:55 AM, LOCATION [facility] HISTORY: W19.XXXA: Fall, initial encounter ?orbit fracture, [...] identified. > Dictated by Paulino Daniels DO (vice president client services). Erica Caro MD have personally reviewed and interpretedthis examination/study. > Interpreting Provider: Erica George MD on 04/26/2024 7:24 AM Shakira Sawyer MD CT ORDERABLES * CT Head Wo Contrast (04/26/2024 1:54 AM FLOOR SURFACER) Anatomical Region Laterality Modality Head Computed Tomogra phy 04/26/2024 1:57 AM FLOOR SURFACER Impressions 04/26/2024 7:22 AM FLOOR SURFACER IMPRESSION: 1.No acute intracranial hemorrhage, midline shift, or significant mass effect. > Dictated by Paulino Daniels DO (Carbon Cleaner), 04/26/2024 2:05 AM. IErica MD have personally reviewed and interpreted this examination/study. > Interpreting Provider: Erica George MD on 04/26/2024 7:22 AM Narrative 04/26/2024 7:22 AM FLOOR SURFACER PROCEDURE: CT HEAD WO CONTRAST, DATE/TIME OF EXAM: 04/26/2024 1:55 AM, LOCATION [facility] INDICATION: W19.XXXA: Fall, initial encounter EXAMINATION: Computed [...] DATE/TIME OF EXAM: 04/26/2024 1:55 AM, LOCATION [facility] INDICATION: W19.XXXA: Fall, initial encounter EXAMINATION: Computed [...] effect. > Dictated by Paulino Daniels DO (Carbon Cleaner), 04/26/2024 2:05AM. IErica MD have personally reviewed and interpretedthis examination/study. > Interpreting Provider: Erica George MD on 04/26/2024 7:22 AM Shakira Sawyer MD CT ORDERABLES * (ABNORMAL) HCG URINE QUALITATIVE (04/26/2024 12:13 AM FLOOR SURFACER) Test Urine Positive(A ) Negative 04/26/2024 12:29 AM FLOOR SURFACER [facility] Urine URINE / Unknown Collection / Unknown 04/26/2024 12:13 AM FLOOR SURFACER 04/26/2024 12:19 AM FLOOR SURFACER Gilbert Tang MD LAB - URINALYSIS ORD ERABLES [facility] [address] [place] [address] [phone] * (ABNORMAL) CBC W AUTO DIFFERENTIAL (04/26/2024 12:13 AM [facility]) WBC 11.8(H) 4.0 - 10.7 x10E9/L 04/26/2024 12:29 AM [facility] RBC Count 3.86(L) 3.90 - 5.20 x10E12/L 04/26/2024 12:29 AM [facility] Hemoglobin 10.8(L) 11.9 - 15.8 g/dL 04/26/2024 12:29 AM [facility] Hematocrit 32.0(L) 34.8 - 46.1 % 04/26/2024 12:29 AM [facility] MCV 82.9 80.0 - 98.0 fL 04/26/2024 12:29 AM [facility] MCH 28.0 26.7 - 33.6 pg 04/26/2024 12:29 AM [facility] MCHC 33.8 31.7 - 36.3 g/dL 04/26/2024 12:29 AM [facility] RDW-CV 13.1 11.3 - 14.8 % 04/26/2024 12:29 AM [facility] Platelet Count 406 150 - 420 x10E9/L 04/26/2024 12:29 AM [facility] MPV 9.0 7.8 - 11.4 fL 04/26/2024 12:29 AM [facility] Neutrophil % 72.1 41.0 - 74.0 % 04/26/2024 12:29 AM [facility] Lymphocyte % 18.0 17.0 - 47.0 % 04/26/2024 12:29 AM [facility] Monocyte % 8.1 3.0 - 11.0 % 04/26/2024 12:29 AM [facility] Eosinophil % 1.1 0.0 - 7.0 % 04/26/2024 12:29 AM [facility] Basophil % 0.3 0.0 - 1.6 % 04/26/2024 12:29 AM [facility] Immature Granulocytes % 0.4 0.0 - 1.0 % 04/26/2024 12:29 AM [facility] Neutrophil Absolute 8.52(H) 1.60 - 7.50 x10E9/L 04/26/2024 12:29 AM [facility] Lymphocyte Absolute 2.12 1.00 - 4.40 x10E9/L 04/26/2024 12:29 AM [facility] Monocyte Absolute 0.95 0.15 - 1.00 x10E9/L 04/26/2024 12:29 AM [facility] Eosinophil Absolute 0.13 0.00 - 0.60 x10E9/L 04/26/2024 12:29 AM [facility] Basophil Absolute 0.03 0.00 - 0.13 x10E9/L 04/26/2024 12:29 AM [facility] Blood BLOOD SPECIMEN / Unknown Venipuncture / Unknown 04/26/2024 12:13 AM [facility] 04/26/2024 12:21 AM [facility] Gilbert Tang MD LAB - HEMATOLOGY ORD ERABLES [facility] [address] [place] [phone], [facility] [phone] * (ABNORMAL) COMPREHENSIVE METABOLIC PANEL (04/26/2024 12:13 AM [facility]) BUN 6(L) 7 - 26 mg/dL 04/26/2024 12:48 AM [facility] Creatinine 0.59 0.56 - 0.96 mg/dL 04/26/2024 12:48 AM [facility] Sodium 138 136 - 145 mmol/L 04/26/2024 12:48 AM [facility] Potassium 3.6 3.5 - 4.5 mmol/L 04/26/2024 12:48 AM [facility] Chloride 107 98 - 107 mmol/L 04/26/2024 12:48 AM [facility] CO2 23 22 - 29 mmol/L 04/26/2024 12:48 AM [facility] Glucose 89 70 - 99 mg/dL 04/26/2024 12:48 AM [facility] Calcium 9.3 8.4 - 10.2 mg/dL 04/26/2024 12:48 AM [facility] Protein Total 7.5 6.0 - 8.3 g/dL 04/26/2024 12:48 AM [facility] Albumin 3.4 3.4 - 5.0 g/dL 04/26/2024 12:48 AM [facility] Bilirubin Total 0.2 0.2 - 1.2 mg/dL 04/26/2024 12:48 AM [facility] Alkaline Phosphatase 61 40 - 150 U/L 04/26/2024 12:48 AM [facility] ALT 21 5 - 55 U/L 04/26/2024 12:48 AM [facility] AST 18 5 - 34 U/L 04/26/2024 12:48 AM [facility] Anion Gap 8 6 - 16 04/26/2024 12:48 AM [facility] BUN/Creatinine Ratio 10 7 - 23 04/26/2024 12:48 AM [facility] Osmolality Calculated 283 275 - 295 mOsm/kg 04/26/2024 12:48 AM [facility] Albumin/Globulin Ratio 0.8(L) 1.1 - 2.3 04/26/2024 12:48 AM [facility] eGFR by CKD-EPI >90 >=90 mL/min/1.7 3 m2 04/26/2024 12:48 AM [facility] Blood BLOOD SPECIMEN / Unknown Venipuncture / Unknown 04/26/2024 12:13 AM [facility] 04/26/2024 12:21 AM [facility] Gilbert Tang MD LAB - CHEMISTRY ORDE [facility] Organization Address City/State/ZIP Co de Phone Number [facility] [address] [place] [address], [facility] [phone] from [place] [address] [place] [address] Fadumo Baxter Personal/Family Self 1990
--- OUTSIDE RECORDS SUMMARY | 2024-07-25 20:00 | XMS_ITS | Referral Summary ---
Author Organization [facility] [address] Address [address] [place] [address] Care Team Providers Care Power Hair Clipper Name Role Phone Unknown, Notinfile Primary Care [...] picking up her blood pressure machine at [facility], so sent a new blood pressure machine [...] the PAP. She was not able to cotton picker the BP cuff previously but is now done with school so will plan to pick it up this week. They are still in the process of moving to [facility] the middle of June but states she will likely continue care at [facility]. She will bring repeat blood pressures to [...] Blood pressure monitor for home prescribed to [employer], and instructions given to take blood pressure [...] 12/10/2023 12:59 PM CDT Plan of Treatment [place] [id number] [facility] [employer] [facility] Member Subscriber Plan / Payer (Ef fective 2023-Present) Name:Fadumo Baxter Relation to Subscriber:Self Name:Fadumo Baxter Payer ID:[id number] (NAIC) Type: [employer] Address: [address] [facility] [employer] [facility] Care Teams Power Hair Clipper Relationship Specialty Start Date End Date Unknown, Notinfile PCP - General 11/08/23
[2024-07-25] MEDS: FAMOTIDINE 20 MG/2 ML VIAL IV PUSH (20:45)
[2024-07-25] MEDS: LACTATED RINGERS 1,000 ML 999 ML IV CONT ×2 (20:45→21:45)
[2024-07-25] MEDS: ONDANSETRON INJ 4 MG/2 ML VIAL IV PUSH (20:45)
[2024-07-25 21:07] LABS: Basophils Percent Auto 0.1 % (0.2-1.2); Eosinophils Percent Auto 0.1 % (0-4.4); Hematocrit 31.7 % (37.0-47.0); Hemoglobin 10.6 g/dL (12.0-15.0); Immature Granulocyte Absolute 0.08 K/mm3 (0.00-0.031); Immature Granulocyte Percent A 0.6 % (0-0.5); Lymphocytes Absolute Auto 1.16 K/mm3 (0.9-3.2); Lymphocytes Percent Auto 8.1 % (18.3-44.2); Mean Corpuscular HGB Conc 33.4 g/dl (32-36); Mean Corpuscular Volume 83.9 fl (80-100); Mean Platelet Volume 9.6 fl (7.4-10.4); Neutrophils Absolute Auto 12.1 K/mm3 (1.3-6.7); Neutrophils Percent Auto 84.1 % (45.5-73.1); Platelet Count Result 424 k/mm3 (150-375); Red Blood Count 3.78 M/mm3 (4.2-5.4); Red Cell Distribution Width 13.4 % (11.5-14.5); White Blood Count 14.3 K/mm3 (4.5-10.0)
[2024-07-25 21:14] LABS: Add Urine Microscopic? YES; Appearance Urine Clear (Clear); Bacteria Urine None Seen /hpf; Bilirubin Urine 1+ (Negative); Blood Urine Negative (Negative); Color Urine Dark Yellow (Yellow); Glucose Urine UA Negative (Negative); Ketones Urine 4+ mg/dL (Negative); Leukocyte Esterase Ur 1+ LEU/UL (Negative); Nitrate Urine Negative (Negative); Non Pathogenic Casts 0-2; Protein Urine 2+ mg/dL (Negative); Specific Grav Ur 1.036 (1.001-1.035); Squamous Epithelial Cell Urine Few /hpf (Few)
[2024-07-25 21:19] LABS: Alanine Aminotransferase 22 U/L (6-35); Albumin Level 3.9 g/dL (3.5-5.1); Alkaline Phosphatase 95 U/L (38-126); Anion Gap 13 mmol/L (4-12); Aspartate Amino Transferase 27 U/L (14-36); Bilirubin,Total 1.1 mg/dL (0.2-1.3); Blood Urea Nitrogen 6 mg/dL (7-17); Calcium 9.4 mg/dL (8.4-10.2); Carbon Dioxide 24 mmol/L (22-30); Chloride 100 mmol/L (98-107); Estimated Glomerular Filt Rate > 60; Glucose 107 mg/dL (65-110); Potassium 3.2 mmol/L (3.4-5.0); Sodium 137 mmol/L (137-145)
--- NOTE | 2024-07-25 21:59 | OBADM ---
This patient, Fadumo Baxter, admitted to the OB room OB Post 116 for observation. Patient/family oriented to hospital policies and general routines including ID bracelet, bed and alarms, visiting hours, pain management, procedures, bathroom and other care routines, personal items, smoking policy, room service/diet, and visiting hours. Patient/Family are encouraged to report perceived risks to care and to ask questions if they do not understand what they are told or what they should do.
--- NOTE | 2024-07-25 22:52 | PC.NURSE ---
Call placed to Dr. Pereyra. Reported FHR, CTX, BPs and labs. Pt feeling better. Order to d/C pt home undelivered. Pt needs to follow up with normal OB provider this coming week.
--- NOTE | 2024-07-25 23:04 | PC.NURSE ---
Pt discharged home undelivered in stable condition per orders from Dr. Pereyra. Discharge orders discussed and given to pt, pt stated understanding, all questions and concerns answered. Pt ambulated out of department with all belongings, S.O @ pt side.
--- NOTE | 2024-07-28 09:33 | PN_ITS ---
This report was moved to the correct visit on 07/29/2024. The original report was signed by Brianda Pereyra MD on 07/28/24 [id number]. OB - Triage/Final Diagnosis Visit Information Comments/Additional reasons for admission: I have assessed the risk for this patient, Fadumo Baxter, and determined that she would benefit from observation care. Evaluation Laboratory results: Laboratory Tests 07/28/24 07:36 WBC 11.2 H RBC 3.91 L Hgb 10.9 L Hct 34.1 L MCV 87.2 MCH 27.9 MCHC 32.0 RDW 13.2 Plt Count 430 H MPV 9.6 Immature Gran % (Auto) 0.9 H Neut % (Auto) 77.3 H Lymph % (Auto) 13.2 L [place] % (Auto) 8.0 Eos % (Auto) 0.2 Baso % (Auto) 0.4 Lymph # (Auto) 1.47 [place] # (Auto) 0.9 H Eos # (Auto) 0.0 Baso # (Auto) 0.0 Abs Immat Gran (auto) 0.10 H Absolute Neuts (auto) 8.7 H Absolute Nucleated RBC 0.000 Nucleated RBC % 0.0 Lipase 51 Urine Color Yellow Urine Appearance Clear Urine pH 5.5 Ur Specific [place] 1.029 Urine Protein 1+ H Urine Glucose (UA) Negative Urine Ketones 4+ H Ur Blood (Man) Negative Urine Nitrate Negative Urine Bilirubin Negative Urine Urobilinogen 1.0 Ur Leukocyte Esterase Negative Urine RBC 0-2 Urine WBC 0-5 Ur Squamous Epith Cells Few Urine Bacteria Rare Urine Casts 0-2 Vital signs: Vital Signs - 24 hr 07/28/2506:46 07/28/2507:01 07/28/2507:31 Pulse Rate 82 77 73 Blood Pressure 130/81 125/77 130/75 07/28/2507:46 Pulse Rate 71 Blood Pressure 127/74 Final Diagnosis (1) Nausea and vomiting: Code(s): R11.2 - Nausea with vomiting, unspecified Status: Acute Please be advised this is a medical document. It is intended for [id number] communication. It is written in medical language and may contain unfamiliar abbreviations or verbiage. Medical documents are intended to carry relevant information, facts as evident, and the clinical opinion of the practitioner at the time of the encounter. This report may have been done utilizing a voice recognition system. Attempts have been made to correct errors. However, there may be uncorrected grammatical, spelling, and recognition errors present. The file time of this note does not necessarily represent the time the patient was seen. Report Initialized date/time: Brianda Pereyra MD 07/28/24932 Electronically signed by: Brianda Pereyra MD 07/28/2433 [facility]
== END 2024-07-25 23:05 | disposition home or self-care (01) ==
PROVIDERS: Admitting Provider Obstetrics & Gynecology; Visit Provider Obstetrics & Gynecology
DX: O21.2 Late vomiting of pregnancy (principal); Z3A.31 31 weeks gestation of pregnancy
CPT/HCPCS: 36415; 80053; 81001; 85025; 87086; 96361; 96374; 96375; G0378; G0379; J2405; J7120

== ENCOUNTER 2024-07-28 07:15 | Observation (INO) | payer OTHER, SELFPAY ==
[2024-07-28] VITALS (7 sets, daily range): BP systolic 121–136; BP diastolic 74–81; PULSE 71–84; TEMP 36.7
--- OUTSIDE RECORDS SUMMARY | 2024-07-28 07:24 | XMS_ITS | Referral Summary ---
Author Organization [facility] Health Address [address] [place] [address] Care Team Providers Care Team Assembly Line Machine Operator Name Role Phone Unavailable Primary Care Provider Unavailabl e Source Comments [facility],non-owned Affiliates and Associated Physician Practices is amultiple site organization consisting of ambulatory clinics and hospital sitesin [place], [place], [place] and [place]. This disclosure is being madepursuant to the Care Everywhere program and may not contain all information available regarding this patient. Last updated 18.[facility] [employer] Allergies No known active allergies Social History Tobacco Use Types Packs/Day Years Used Date Smoking Tobacco: Never Assessed Sex and Gender Information Value Date Recorded Sex Assigned at Not on file Gender Identity Not on file Sexual Orientation Not on file Last Filed Vital Signs Vital Sign Reading Time Taken Comments Blood Pressure 132/101 04/25/2024 11:26 PM PERCHER Pulse 106 04/25/2024 11:26 PM PERCHER Temperature 36.7 C (98 F) 04/25/2024 11:26 PM PER[facility]ER Respiratory Rate 22 04/25/2024 11:26 PM [facility] Oxygen Saturation 97% 04/25/2024 11:26 PM PER[facility]ER Inhaled Oxygen Concentration - - Weight 115.7 kg (255 lb) 04/25/2024 11:26 PM PER[facility]ER Height 172.7 cm (5' 8 ) 04/25/2024 11:26 PM [facility] Body Mass Index 38.77 04/25/2024 11:26 PM PER[facility] Plan [place] Treatment [place] [address] Fadumo Baxter Personal/Family Self 1990
--- OUTSIDE RECORDS SUMMARY | 2024-07-28 07:24 | XMS_ITS | Clinical Summary ---
Author Organization [facility] Health Address [address] [place] [address] Care Team Providers Care Relay Shop Tester Name Role Phone Unavailable Primary Care Provider Unavailabl e Source Comments [facility],non-owned Affiliates and Associated Physician Practices is amultiple site organization consisting of ambulatory clinics and hospital sitesin [place], [place], [place] and [place]. This disclosure is being madepursuant to the Care Everywhere program and may not contain all information available regarding this patient. Last updated 18.[facility] Allergies No known active allergies Social History Tobacco Use Types Packs/Day Years Used Date Smoking Tobacco: Never Assessed Sex and Gender Information Value Date Recorded Sex Assigned at Not on file Gender Identity Not on file Sexual Orientation Not on file Last Filed Vital Signs Vital Sign Reading Time Taken Comments Blood Pressure 132/101 04/25/2024 11:26 PM AIX ADMINISTRATOR Pulse 106 04/25/2024 11:26 PM AIX ADMINISTRATOR Temperature 36.7 C (98 F) 04/25/2024 11:26 PM AIX ADMINISTRATOR Respiratory Rate 22 04/25/2024 11:26 PM AIX ADMINISTRATOR Oxygen Saturation 97% 04/25/2024 11:26 PM AIX ADMINISTRATOR Inhaled Oxygen Concentration - - Weight 115.7 kg (255 lb) 04/25/2024 11:26 PM AIX ADMINISTRATOR Height 172.7 cm (5' 8 ) 04/25/2024 11:26 PM AIX ADMINISTRATOR Body Mass Index 38.77 04/25/2024 11:26 PM AIX ADMINISTRATOR Plan of Treatment Health Maintenance Due Date Last Done Comments PAP SMEAR 1990 HIV SCREENING 2006 HEPATITIS C SCREENING 03/25/2009 DTAP/TDAP/TD VACCINES (1 - Tdap) 2010 HEPATITIS B VACCINE (1 of 3 - 19+ 3-dose series) 2010 COVID-19 VACCINE (2023-2 5 season) 2024 INFLUENZA VACCINE (#1) 2024 [...] on patient's age to [place] [address] Fadumo Baxter Personal/Family Self 1990
--- OUTSIDE RECORDS SUMMARY | 2024-07-28 07:24 | XMS_ITS | Patient Health Summary ---
Author Organization [facility] Address [address] [place] [address] Care Team Providers Care Commutator Operator Name Role Phone Unavailable Primary Care Provider Unavailabl e Note from [facility],non-owned Affiliates and Associated Physician Practices is amultiple site organization consisting of ambulatory clinics and hospital sitesin [place], [place], [place] and [place]. This disclosure is being madepursuant to the Care Everywhere program and may not contain all information available regarding this patient. Last updated 18.[facility] Allergies No known active allergies Social History Tobacco Use Types Packs/Day Years Used Date Smoking Tobacco: Never Assessed Sex and Gender Information Value Date Recorded Sex Assigned at Not on file Gender Identity Not on file Sexual Orientation Not on file Last Filed Vital Signs Vital Sign Reading Time Taken Comments Blood Pressure 132/101 04/25/2024 11:26 PM [employer] SERVICES Pulse 106 04/25/2024 11:26 PM [employer] Temperature 36.7 C (98 F) 04/25/2024 11:26 PM [employer] Respiratory Rate 22 04/25/2024 11:26 PM [employer] Oxygen Saturation 97% 04/25/2024 11:26 PM [employer] Inhaled Oxygen Concentration - - Weight 115.7 kg (255 lb) 04/25/2024 11:26 PM [employer] Height 172.7 cm (5' 8 ) 04/25/2024 11:26 PM [employer] Body Mass Index 38.77 04/25/2024 11:26 PM [employer] Procedures * CT ORBITS WO CONTRAST(Performed 04/26/2024) Performed for Fall, initial encounter * CT HEAD WO CONTRAST(Performed 04/26/2024) Performed for Fall, initial encounter * COMPREHENSIVE METABOLIC PANEL(Performed 04/26/2024) * CBC W AUTO DIFFERENTIAL(Performed 04/26/2024) * HCG URINE QUALITATIVE(Performed 04/26/2024) Results * CT Orbits Wo Contrast (04/26/2024 1:54 AM [employer]) Anatomical Region Laterality Modality Head Computed Tomogra phy 04/26/2024 2:06 AM [employer] Impressions 04/26/2024 7:24 AM [employer] IMPRESSION: 1.Proptotic globes bilaterally. No orbital fracture or retrobulbar hematoma is identified. > Dictated by Paulino Daniels DO (presidential support specialist). IErica MD have personally reviewed and interpreted this examination/study. > Interpreting Provider: Erica George MD on 04/26/2024 7:24 AM Narrative 04/26/2024 7:24 AM [employer] EXAMINATION: CT ORBITS WO CONTRAST DATE/TIME OF EXAM: 04/26/2024 1:55 AM, LOCATION [facility] HISTORY: W19.XXXA: Fall, initial encounter ?orbit fracture, [...] DATE/TIME OF EXAM: 04/26/2024 1:55 AM, LOCATION [facility] HISTORY: W19.XXXA: Fall, initial encounter ?orbit fracture, [...] identified. > Dictated by Paulino Daniels DO (presidential support specialist). Erica Caro MD have personally reviewed and interpretedthis examination/study. > Interpreting Provider: Erica George MD on 04/26/2024 7:24 AM Shakira Sawyer MD CT ORDERABLES * CT Head Wo Contrast (04/26/2024 1:54 AM [employer] SERVICES) Anatomical Region Laterality Modality Head Computed Tomogra phy 04/26/2024 1:57 AM [employer] Impressions 04/26/2024 7:22 AM [employer] IMPRESSION: 1.No acute intracranial hemorrhage, midline shift, or significant mass effect. > Dictated by Paulino Daniels DO (Shock Absorber Installer), 04/26/2024 2:05 AM. Erica Caro MD have personally reviewed and interpreted this examination/study. > Interpreting Provider: Erica George MD on 04/26/2024 7:22 AM Narrative 04/26/2024 7:22 AM [employer] PROCEDURE: CT HEAD WO CONTRAST, DATE/TIME OF EXAM: 04/26/2024 1:55 AM, LOCATION [facility] INDICATION: W19.XXXA: Fall, initial encounter EXAMINATION: Computed [...] DATE/TIME OF EXAM: 04/26/2024 1:55 AM, LOCATION [facility] INDICATION: W19.XXXA: Fall, initial encounter EXAMINATION: Computed [...] effect. > Dictated by Paulino Daniels DO (Shock Absorber Installer), 04/26/2024 2:05AM. Erica Caro MD have personally reviewed and interpretedthis examination/study. > Interpreting Provider: Erica George MD on 04/26/2024 7:22 AM [address]ira Sawyer MD CT ORDERABLES * (ABNORMAL) HCG URINE QUALITATIVE (04/26/2024 12:13 AM [employer]) Test Urine Positive(A ) Negative 04/26/2024 12:29 AM [facility] Urine URINE / Unknown Collection / Unknown 04/26/2024 12:13 AM [employer] 04/26/2024 12:19 AM [employer] Gilbert Tang MD LAB - URINALYSIS ORD ERABLES [facility] [address] [place] [address], [facility] [phone] * (ABNORMAL) CBC W AUTO DIFFERENTIAL (04/26/2024 12:13 AM [facility]) Pathologist [facility] WBC 11.8(H) 4.0 - 10.7 x10E9/L 04/26/2024 12:29 AM [facility] RBC Count 3.86(L) 3.90 - 5.20 x10E12/L 04/26/2024 12:29 AM [facility] Hemoglobin 10.8(L) 11.9 - 15.8 g/dL 04/26/2024 12:29 AM [facility] Hematocrit 32.0(L) 34.8 - 46.1 % 04/26/2024 12:29 AM [facility] MCV 82.9 80.0 - 98.0 fL 04/26/2024 12:29 AM [facility] MCH 28.0 26.7 - 33.6 pg 04/26/2024 12:29 AM [facility] MCHC 33.8 31.7 - 36.3 g/dL 04/26/2024 12:29 AM [facility] RDW-CV 13.1 11.3 - 14.8 % 04/26/2024 12:29 AM [facility] Platelet Count 406 150 - 420 x10E9/L 04/26/2024 12:29 AM [facility] MPV 9.0 7.8 - 11.4 fL 04/26/2024 12:29 AM [facility] Neutrophil % 72.1 41.0 - 74.0 % 04/26/2024 12:29 AM [facility] Lymphocyte % 18.0 17.0 - 47.0 % 04/26/2024 12:29 AM [facility] Monocyte % 8.1 3.0 - 11.0 % 04/26/2024 12:29 AM [facility] Eosinophil % 1.1 0.0 - 7.0 % 04/26/2024 12:29 AM [facility] Basophil % 0.3 0.0 - 1.6 % 04/26/2024 12:29 AM [facility] Immature Granulocytes % 0.4 0.0 - 1.0 % 04/26/2024 12:29 AM [facility] Neutrophil Absolute 8.52(H) 1.60 - 7.50 x10E9/L 04/26/2024 12:29 AM [facility] Lymphocyte Absolute 2.12 1.00 - 4.40 x10E9/L 04/26/2024 12:29 AM [facility] Monocyte Absolute 0.95 0.15 - 1.00 x10E9/L 04/26/2024 12:29 AM [facility] Eosinophil Absolute 0.13 0.00 - 0.60 x10E9/L 04/26/2024 12:29 AM [facility] Basophil Absolute 0.03 0.00 - 0.13 x10E9/L 04/26/2024 12:29 AM [facility] Blood BLOOD SPECIMEN / Unknown Venipuncture / Unknown 04/26/2024 12:13 AM [facility] 04/26/2024 12:21 AM [facility] Gilbert Tang MD LAB - HEMATOLOGY ORD ERABLES [facility] [address] [place] [id number], [facility] [phone] * (ABNORMAL) COMPREHENSIVE METABOLIC PANEL (04/26/2024 12:13 AM [facility]) BUN 6(L) 7 - 26 mg/dL 04/26/2024 12:48 AM [facility] Creatinine 0.59 0.56 - 0.96 mg/dL 04/26/2024 12:48 AM [facility] Sodium 138 136 - 145 mmol/L 04/26/2024 12:48 AM [facility] Potassium 3.6 3.5 - 4.5 mmol/L 04/26/2024 12:48 AM [facility] Chloride 107 98 - 107 mmol/L 04/26/2024 12:48 AM [facility] CO2 23 22 - 29 mmol/L 04/26/2024 12:48 AM [facility] Glucose 89 70 - 99 mg/dL 04/26/2024 12:48 AM [facility] Calcium 9.3 8.4 - 10.2 mg/dL 04/26/2024 12:48 AM [facility] Protein Total 7.5 6.0 - 8.3 g/dL 04/26/2024 12:48 AM [facility] Albumin 3.4 3.4 - 5.0 g/dL 04/26/2024 12:48 AM [facility] Bilirubin Total 0.2 0.2 - 1.2 mg/dL 04/26/2024 12:48 AM [facility] Alkaline Phosphatase 61 40 - 150 U/L 04/26/2024 12:48 AM [facility] ALT 21 5 - 55 U/L 04/26/2024 12:48 AM [facility] AST 18 5 - 34 U/L 04/26/2024 12:48 AM [facility] Anion Gap 8 6 - 16 04/26/2024 12:48 AM [facility] BUN/Creatinine Ratio 10 7 - 23 04/26/2024 12:48 AM [facility] Osmolality Calculated 283 275 - 295 mOsm/kg 04/26/2024 12:48 AM [facility] Albumin/Globulin Ratio 0.8(L) 1.1 - 2.3 04/26/2024 12:48 AM [facility] eGFR by CKD-EPI >90 >=90 mL/min/1.7 3 m2 04/26/2024 12:48 AM [facility] Blood BLOOD SPECIMEN / Unknown Venipuncture / Unknown 04/26/2024 12:13 AM [employer] 04/26/2024 12:21 AM [employer] Gilbert Tang MD LAB - CHEMISTRY ISHAAN DANIELS [facility] Organization Address City/State/ZIP Co de Phone Number [address] [address], [facility] [phone]
--- NOTE | 2024-07-28 07:30 | OBADM ---
This patient, Fadumo Baxter, admitted to the OB room OB Post 115 for observation. Patient/family oriented to hospital policies and general routines including ID bracelet, bed and alarms, visiting hours, pain management, procedures, bathroom and other care routines, personal items, smoking policy, room service/diet, and visiting hours. Patient/Family are encouraged to report perceived risks to care and to ask questions if they do not understand what they are told or what they should do.
[2024-07-28] MEDS: ONDANSETRON INJ 4 MG/2 ML VIAL IV PUSH (08:00)
[2024-07-28] MEDS: FAMOTIDINE 20 MG/2 ML VIAL IV PUSH (08:01)
[2024-07-28] MEDS: DEXTROSE 5%/LACTATED RINGERS 1,000 ML 150 ML IV CONT (08:01)
[2024-07-28 08:36] LABS: Lipase 51 U/L (23-300)
[2024-07-28 08:37] LABS: Add Urine Microscopic? YES; Appearance Urine Clear (Clear); Bacteria Urine Rare /hpf; Bilirubin Urine Negative (Negative); Blood Urine Negative (Negative); Color Urine Yellow (Yellow); Glucose Urine UA Negative (Negative); Ketones Urine 4+ mg/dL (Negative); Leukocyte Esterase Ur Negative LEU/UL (Negative); Nitrate Urine Negative (Negative); Non Pathogenic Casts 0-2; Protein Urine 1+ mg/dL (Negative); RBC Urine 0-2 /hpf (0-2); Specific Grav Ur 1.029 (1.001-1.035); Squamous Epithelial Cell Urine Few /hpf (Few); WBC Urine 0-5 /hpf (0-3); pH Urine 5.5 (5.0-9.0)
[2024-07-28 08:39] LABS: Basophils Percent Auto 0.4 % (0.2-1.2); Eosinophils Percent Auto 0.2 % (0-4.4); Hematocrit 34.1 % (37.0-47.0); Hemoglobin 10.9 g/dL (12.0-15.0); Immature Granulocyte Percent A 0.9 % (0-0.5); Lymphocytes Absolute Auto 1.47 K/mm3 (0.9-3.2); Lymphocytes Percent Auto 13.2 % (18.3-44.2); Mean Corpuscular Hemoglobin 27.9 pg (26-34); Mean Corpuscular Volume 87.2 fl (80-100); Mean Platelet Volume 9.6 fl (7.4-10.4); Monocytes Absolute Auto 0.9 K/mm3 (0.1-0.6); Neutrophils Absolute Auto 8.7 K/mm3 (1.3-6.7); Neutrophils Percent Auto 77.3 % (45.5-73.1); Platelet Count Result 430 k/mm3 (150-375); Red Blood Count 3.91 M/mm3 (4.2-5.4); Red Cell Distribution Width 13.2 % (11.5-14.5); White Blood Count 11.2 K/mm3 (4.5-10.0)
--- NOTE | 2024-07-28 09:26 | PC.NURSE ---
Patient states that she is having some belly pain. States she is not sure if she is hungry or if its just gallbladder pain. Patient wanting to try to eat a little something.
--- NOTE | 2024-07-28 09:33 | PM.OBTRLD ---
OB - Triage/Final Diagnosis Visit Information Comments/Additional reasons for admission: I have assessed the risk for this patient, Fadumo Baxter, and determined that she would benefit from observation care. Evaluation Laboratory results: Laboratory Tests 07/28/24 07:36 WBC 11.2 H RBC 3.91 L Hgb 10.9 L Hct 34.1 L MCV 87.2 MCH 27.9 MCHC 32.0 RDW 13.2 Plt Count 430 H MPV 9.6 Immature Gran % (Auto) 0.9 H Neut % (Auto) 77.3 H Lymph % (Auto) 13.2 L [place] % (Auto) 8.0 Eos % (Auto) 0.2 Baso % (Auto) 0.4 Lymph # (Auto) 1.47 [place] # (Auto) 0.9 H Eos # (Auto) 0.0 Baso # (Auto) 0.0 Abs Immat Gran (auto) 0.10 H Absolute Neuts (auto) 8.7 H Absolute Nucleated RBC 0.000 Nucleated RBC % 0.0 Lipase 51 Urine Color Yellow Urine Appearance Clear Urine pH 5.5 Ur Specific [place] 1.029 Urine Protein 1+ H Urine Glucose (UA) Negative Urine Ketones 4+ H Ur Blood (Man) Negative Urine Nitrate Negative Urine Bilirubin Negative Urine Urobilinogen 1.0 Ur Leukocyte Esterase Negative Urine RBC 0-2 Urine WBC 0-5 Ur Squamous Epith Cells Few Urine Bacteria Rare Urine Casts 0-2 Vital signs: Vital Signs - 24 hr 07/28/24 07:46 07/28/24 08:01 07/28/24 08:31 Pulse Rate 82 77 73 Blood Pressure 130/81 125/77 130/75 07/28/24 08:46 Pulse Rate 71 Blood Pressure 127/74 Final Diagnosis (1) Nausea and vomiting: Code(s): R11.2 - Nausea with vomiting, unspecified Status: Acute
[2024-07-28 09:53] LABS: Alanine Aminotransferase 49 U/L (6-35); Albumin Level 3.8 g/dL (3.5-5.1); Alkaline Phosphatase 106 U/L (38-126); Anion Gap 15 mmol/L (4-12); Aspartate Amino Transferase 39 U/L (14-36); Bilirubin,Total 0.7 mg/dL (0.2-1.3); Blood Urea Nitrogen 4 mg/dL (7-17); Carbon Dioxide 13 mmol/L (22-30); Chloride 104 mmol/L (98-107); Estimated Glomerular Filt Rate > 60; Glucose 67 mg/dL (65-110); Potassium 3.2 mmol/L (3.4-5.0); Sodium 132 mmol/L (137-145)
--- NOTE | 2024-07-28 11:32 | PM.TDS ---
Transfer Discharge Sum: Prov Provider Date of admission: 07/28/24 07:15 Primary care physician: UNKNOWN,DOCTOR Admitting clinician: Brianda Pereyra MD Anticipated date of transfer: 07/28/24 Receiving physician/facility: [facility] DS: Admitting Diagnosis Discharge Date 07/28/24 Admitting Diagnosis Nausea/vomiting abdominal pain DS: Discharge Diagnosis Discharge Diagnosis (1) Gallstones: Code(s): K80.20 - Calculus of gallbladder without cholecystitis without obstruction Status: Acute Transfer Discharge Sum: Med Medications Active and Home Medications: Home Medications No Home Medications 07/25/24 [History Confirmed 07/25/24] Active Medications Famotidine (Famotidine 20 Mg/2 Ml Vial) 20 mg IV PUSH Q12HR [facility] Last Admin: 07/28/24 08:01 Dose: 20 mg Dextrose/Lactated Ringer's (Dextrose 5%/Lactated Ringers) 1,000 mls @ 150 mls/hr IV CONT .Q6H40M [facility] Last Admin: 07/28/24 08:01 Dose: 150 mls/hr Ondansetron HCl (Ondansetron Inj 4 Mg/2 Ml Vial) 4 mg IV PUSH Q4H PRN PRN Reason: Nausea And Vomiting Last Admin: 07/28/24 08:00 Dose: 4 mg Transfer Discharge Sum: Hosp Hospital Course Hospital course: Fadumo Baxter is a 34yo @ 31.4 wks (BABAK [birth year]) who has presented to L&D for the third time in less than 72 hours due to persistent nausea, vomiting, anorexia, and RUQ abdominal pain. RUQ US performed 07/27/24 showed gallstones without signs of cholecystitis, but her LFTs and WBC have slowly been trending up. She has been getting PNC at [facility] due to CHTN. tracing has been reassuring with occasional periods of uterine irritability. [facility] was contacted for transfer to higher level of care. Accepting physician -- Jacquie. Will get admitted to L&D under her primary OB, Dr. Dean. Time Spent with Patient Time attestation: Total time spent providing and/or coordinating transfer services: Exam Const: General: cooperative and in distress mild Resp: Effort & Inspection: normal respiratory effort Cardio: Rate: regular rate GI: GI Palp: Yes abdominal tenderness : Other: FHTs: 140's/ mod david/ + accels/ no decels - cat 1 toco; irritability Skin: General skin exam: normal color Neuro: General: patient oriented x3 Extrem: General: normal to inspection Psych: Appearance: grossly normal Affect: normal affect Attitude: cooperative DS: Data Data Completed and Pending Labs on day of discharge: Labs from last 24 hours 07/28/24 07:36 WBC 11.2 H RBC 3.91 L Hgb 10.9 L Hct 34.1 L MCV 87.2 MCH 27.9 MCHC 32.0 RDW 13.2 Plt Count 430 H MPV 9.6 Immature Gran % (Auto) 0.9 H Neut % (Auto) 77.3 H Lymph % (Auto) 13.2 L [place] % (Auto) 8.0 Eos % (Auto) 0.2 Baso % (Auto) 0.4 Lymph # (Auto) 1.47 [place] # (Auto) 0.9 H Eos # (Auto) 0.0 Baso # (Auto) 0.0 Abs Immat Gran (auto) 0.10 H Absolute Neuts (auto) 8.7 H Absolute Nucleated RBC 0.000 Nucleated RBC % 0.0 Sodium 132 L Potassium 3.2 L Chloride 104 Carbon Dioxide 13 L Anion Gap 15 H BUN 4 L Creatinine 0.39 L Estim Creat Clear Calc Not Reportable Estimated GFR > 60 Glucose 67 Calcium 9.0 Total Bilirubin 0.7 AST 39 H ALT 49 H Alkaline Phosphatase 106 Total Protein 7.0 Albumin 3.8 Lipase 51 Urine Color Yellow Urine Appearance Clear Urine pH 5.5 Ur Specific [place] 1.029 Urine Protein 1+ H Urine Glucose (UA) Negative Urine Ketones 4+ H Ur Blood (Man) Negative Urine Nitrate Negative Urine Bilirubin Negative Urine Urobilinogen 1.0 Ur Leukocyte Esterase Negative Urine RBC 0-2 Urine WBC 0-5 Ur Squamous Epith Cells Few Urine Bacteria Rare Urine Casts 0-2
== END 2024-07-28 13:10 | disposition short-term general hospital (02) ==
LOC: ANHOBPP 07:21
PROVIDERS: Admitting Provider Obstetrics & Gynecology; Visit Provider Obstetrics & Gynecology
DX: O99.613 Diseases of the digestive system complicating pregnancy, third trimester (principal); K80.20 Calculus of gallbladder without cholecystitis without obstruction; O16.3 Unspecified maternal hypertension, third trimester; Z3A.31 31 weeks gestation of pregnancy
CPT/HCPCS: 36415; 80053; 81001; 83690; 85025; 87086; 96374; 96375; G0378; G0379; J2405; J7121